=== PATIENT | female | born 1990 | race Caucasian/White ===

== ENCOUNTER 2021-07-08 20:54 | Emergency (ER) | payer OTHER | END 2021-07-09 04:07 | disposition home or self-care (01) | LOC: ER1 20:54 | DX: J32.9 Chronic sinusitis, unspecified (principal); H92.02 Otalgia, left ear; Z90.49 Acquired absence of other specified parts of digestive tract; Z20.822 Contact with and (suspected) exposure to COVID-19 | CPT/HCPCS: 99284; U0002 ==